=== PATIENT | female | born 1955 | race Caucasian/White ===

== ENCOUNTER 2017-12-09 00:36 | Emergency (ER) | payer OTHER, SELFPAY ==
[2017-12-09 00:45] VITALS: BP 193/110; PULSE 105; RESP 18; TEMP 37.1; O2SAT 98; BMI 28.1
[2017-12-09] MEDS: predniSONE 20 MG TABLET 40 MG PO (01:29)
--- NOTE | 2017-12-09 01:48 | ED_ITS ---
HPI - Skin/Abscess/Foreign Bdy General Chief complaint: Skin/Abscess/Foreign Body Stated complaint: RIGHT HAND/ARM SWOLLEN Time Seen by Provider: 12/09/17 00:45 Source: patient Mode of arrival: ambulatory Limitations: no limitations History of Present Illness HPI narrative: 62-year-old female with noncontributory medical history presents with a chief complaint of gradually worsening itching, redness and swelling to the dorsum of her right hand. It all started with the sudden onset sensation on the dorsum of her right index finger and she is fairly certain she was bitten by a bug. Over the course of the day progressed to erythema and swelling on the dorsum of her right index finger followed by hand, wrist and now forearm. She has very minimal pain and states it feels quite different than an episode of cellulitis she had years ago. She is able to make a fist without difficulty and states her symptoms had been improving with Benadryl until the past few hours. She denies any swelling of tongue, lips or throat. She denies any difficulty breathing. MD complaint: rash Onset (ago): day(s) Tetanus up to date: yes Location: R hand Severity: moderate Quality: pruritic Relieving factors: none Exacerbating factors: none Context: witnessed insect bite Associated symptoms: denies other symptoms Treatments prior to arrival: Benadryl Related Data Home Medications Medication Instructions Recorded Confirmed diphenhydramine HCl [Benadryl] 25 mg PO Q4-6H PRN 12/09/17 12/09/17 Previous Rx's Medication Instructions Recorded cephalexin [Keflex] 500 mg PO QID 7 Days #28 cap 12/09/17 prednisone 20 mg PO DAILY #5 tab 12/09/17 Allergies Allergy/AdvReac Type Severity Reaction Status Date / Time No Known Drug Allergies Allergy Verified 12/09/17 01:01 Review of Systems Review of Systems All systems reviewed & are unremarkable except as noted in HPI and below Constitutional Denies chills, Denies fever(s), Denies lethargy and Denies weakness Eyes Denies change in vision, Denies eye discharge, Denies irritation and Denies loss of vision ENT Ears, Nose, Mouth, and Throat: Denies change in voice, Denies neck pain and Denies sore throat Cardiovascular Denies chest pain, Denies irregular heart rhythm, Denies lightheadedness, Denies palpitations, Denies dyspnea, Denies dyspnea on exertion and Denies orthopnea Respiratory Denies cough, Denies dyspnea, Denies dyspnea on exertion and Denies wheezing Gastrointestinal Gastrointestinal: Denies abdominal pain, Denies change in bowel habits, Denies diarrhea, Denies nausea and Denies vomiting Genitourinary Denies hematuria, Denies flank pain, Denies urinary incontinence and Denies urinary urgency Musculoskeletal Denies neck pain Integumentary/Breasts Reports pruritus, Reports erythema, Reports rash, Reports skin swelling and Denies wounds Neurologic Denies confusion, Denies loss of vision and Denies weakness Psychiatric Denies anxiety, Denies confusion, Denies depression, Denies homicidal ideation and Denies suicidal ideation Endocrine Denies palpitations Hematologic/Lymphatic Denies easy bruising Allergic/Immunologic Denies wheezing PFSH Family History Grandfather Diabetes mellitus Grandmother Cancer Mother Heart disease Hypertension Stroke Grandfather Heart disease Social History Smoking Status: Current every day smoker Exam Narrative Exam Narrative: GENERAL: Pleasant 62-year-old female in no obvious distress. HEAD: Atraumatic. Normocephalic. No temporal or scalp tenderness. EYES: Pupils equal round and reactive. Extraocular motions intact. No scleral icterus. No injection or drainage. ENT: Nose without bleeding, purulent drainage or septal hematoma. Throat without erythema, tonsillar hypertrophy or exudate. Uvula midline. Airway patent. NECK: Trachea midline. No JVD or lymphadenopathy. Supple, nontender, no meningeal signs. CARDIOVASCULAR: Regular rate and rhythm without murmurs, gallops, or rubs. RESPIRATORY: Clear to auscultation. Breath sounds equal bilaterally. No wheezes , rales, or rhonchi. GASTROINTESTINAL: Abdomen soft, non-tender, nondistended. No hepato-splenomegaly , or palpable masses. No guarding. EXTREMITIES: Patient has erythema and swelling on dorsum of the right hand but is able to make a fist. It is not circumferential and the patient has no pain with palpation including the palm of the hand. Cap refills less than 2 sec, the erythema is blanching BACK: Nontender without deformity or crepitance. No flank tenderness. NEURO: AOx3. SKIN: Erythema and swelling Initial Vital Signs Initial Vital Signs: Vital Signs Temperature 98.7 F 12/09/17 00:45 Pulse Rate 105 H 12/09/17 00:45 Respiratory Rate 18 12/09/17 00:45 Blood Pressure 193/110 H 12/09/17 00:45 Pulse Oximetry 98 12/09/17 00:45 Course Orders Ordered: Discontinued Medications Prednisone (Deltasone) 40 mg PO NOW ONE Stop: 12/09/17 01:16 Last Admin: 12/09/17 01:29 Dose: 40 mg Ranitidine HCl (Zantac) 300 mg PO NOW ONE Stop: 12/09/17 01:16 Last Admin: 12/09/17 01:28 Dose: 300 mg Vital Signs - 8 hr 12/09/17 00:45 Temperature 98.7 F Pulse Rate 105 H Respiratory Rate 18 Blood Pressure 193/110 H Pulse Oximetry 98 MDM - Skin/Abscess/Foreign Bdy Differential Diagnosis Likely abscess of skin or subcutaneous tissue, viral exanthem, dermatophytosis, urticaria, allergic reaction to drug, cellulitis, eczema, insect bites, impetigo and contact dermatitis Medical Records Attestation: I reviewed the patient's medical records. MDM Narrative Medical decision making narrative: Differential diagnosis includes localized allergic reaction, cellulitis, gout, DVT Cellulitis thought less likely given complete lack of pain and improvement with Benadryl Allergic reaction thought most likely given itching, lack of pain, and improvement with Benadryl DVT/gout thought unlikely given lack of risk and pain, as well as improvement with Benadryl Discharge Plan Departure Patient Disposition: Home Clinical Impression: Allergic reaction to insect bite Instructions: DI for General Allergic Reactions Activity Restrictions/Additional Instructions: *You have been diagnosed with [ allergic reaction to insect bite, possible early cellulitis ] *What to do: *Take medications as directed. In addition to the prescription and over the counter Benadryl please obtain over the counter Zantac or Pepcid which is another type of antihistamine which can help improve your symptoms. Also, though this seems most likely to be a localized allergic reaction to insect bite there is some concern of the possibility of infection. You've been given a prescription for an antibiotic, please have a low threshhold for filling it such as increased redness, pain, fever or increased spread *Follow up with your primary care provider in 2-3 days, call for an appointment. Let them know you were seen in the Emergency Department and that we ask that you be seen in follow up *Return to ER if you should have any new, worsening or concerning symptoms Prescriptions: New prednisone 20 mg tablet 20 mg PO DAILY Qty: 5 RF: 0 cephalexin [Keflex] 500 mg capsule 500 mg PO QID 7 Days Qty: 28 RF: 0 No Action diphenhydramine HCl [Benadryl] 25 mg Capsule 25 mg PO Q4-6H PRN (Reason: Itching) RF: 0
[2017-12-09 02:59] VITALS: BP 194/110; PULSE 96; RESP 16; O2SAT 98
--- NOTE | 2017-12-09 03:38 | PC.NURSE ---
Late entry addendum-Pt advised to f/u with HTN with PCP. Pt denies cp,sob, dizzziness at this time.
== END 2017-12-09 01:50 | disposition home or self-care (01) ==
PROVIDERS: Emergency Provider Emergency Medicine
DX: T63.481A Toxic effect of venom of other arthropod, accidental (unintentional), initial encounter (principal)
CPT/HCPCS: 99282; 99283